=== PATIENT | male | born 1975 | race Caucasian/White ===

== ENCOUNTER 2018-01-15 20:26 | Inpatient (IN) | payer MEDICAID, OTHER ==
[2018-01-15] MEDS ORDERED: ACETAMINOPHEN 650MG/20.3ML CUP NGT (23:40)
[2018-01-16 00:07] LABS: ADD MAN DIFF? NO; BASOPHILS % 0.1 % (0.0-2.0); HEMATOCRIT 44.3 % (42.0-52.0); HEMOGLOBIN 15.5 g/dl (14.0-18.0); LYMPHOCYTES # 1.1 10^3/ul (0.8-2.9); LYMPHOCYTES % 10.6 % (15.0-51.0); MEAN CORPUSCULAR HEMOGLOBIN 30.8 pg (29.0-33.0); MEAN CORPUSCULAR VOLUME 87.9 fl (82.0-101.0); MONOCYTE # 0.5 10^3/ul (0.3-0.9); MONOCYTES % 4.7 % (0.0-11.0); NEUTROPHILS % 84.2 % (39.0-77.0); PLATELET COUNT 266 10^3/UL (140-415); RED BLOOD COUNT 5.04 10^6/ul (4.70-6.10); RED CELL DISTRIBUTION WIDTH 11.9 % (11.5-14.5)
[2018-01-16 00:07] LABS: WHITE BLOOD COUNT 10.7 10^3/ul (4.8-10.8)
[2018-01-16] MEDS: SODIUM CHLORIDE 0.9% 1L BAG IV* (00:21)
[2018-01-16] MEDS: morphine 4 MG/ML VIAL IV (00:22)
[2018-01-16] MEDS: ONDANSETRON 4 MG INJ IV (00:22)
[2018-01-16] MEDS: ACETAMINOPHEN 325 MG TAB PO ×3 (00:27→20:59)
[2018-01-16 00:28] LABS: LACTIC ACID 1.5 mmol/L (0.5-2.0)
[2018-01-16 00:29] LABS: ALANINE AMINOTRANSFERASE 26 IU/L (13-69); ALBUMIN 4.2 g/dl (3.3-4.9); ALBUMIN/GLOBULIN RATIO 1.07; ALKALINE PHOSPHATASE 107 IU/L (42-121); ANION GAP 14 (8-16); ASPARTATE AMINO TRANSFERASE 25 IU/L (15-46); BILIRUBIN,INDIRECT 0.4 mg/dl (0-1.1); BILIRUBIN,TOTAL 0.4 mg/dl (0.2-1.3); BLOOD UREA NITROGEN 11 mg/dl (7-20); CALCIUM 9.1 mg/dl (8.4-10.2); CARBON DIOXIDE 29 mmol/L (21-31); CHLORIDE 94 mmol/L (97-110); CREATININE 0.68 mg/dl (0.61-1.24); GLUCOSE 230 mg/dl (70-220); INR 0.98; POTASSIUM 4.4 mmol/L (3.5-5.1); PROTIME 13.1 Sec (11.9-14.9); SODIUM 133 mmol/L (135-144); TOTAL PROTEIN 8.1 g/dl (6.1-8.1)
[2018-01-16 00:30] LABS: PARTIAL THROMBOPLASTIN TIME 28.1 Sec (25.0-35.0)
[2018-01-16 00:40] LABS: TROPONIN-I < 0.010 ng/ml (0.000-0.120)
[2018-01-16 01:25] LABS: ADD UMIC YES; UR ASCORBIC ACID NEGATIVE (NEGATIVE); UR BILIRUBIN (Dip) NEGATIVE (NEGATIVE); UR BLOOD (Dip) NEGATIVE (NEGATIVE); UR CLARITY CLEAR (CLEAR); UR COLOR YELLOW (YELLOW); UR GLUCOSE (Dip) 3+ mg/dL (NEGATIVE); UR KETONES (Dip) 2+ mg/dL (NEGATIVE); UR LEUKOCYTE ESTERASE (Dip) NEGATIVE Leu/ul (NEGATIVE); UR MUCUS FEW /HPF (NONE SEEN); UR NITRITE (Dip) NEGATIVE (NEGATIVE); UR RBC 4 /HPF (0-5); UR SPECIFIC GRAVITY (Dip) 1.017 (1.003-1.030); UR TOTAL PROTEIN (Dip) 2+ mg/dl (NEGATIVE); UR UROBILINOGEN (Dip) 1+ mg/dL (NEGATIVE); UR WBC 1 /HPF (0-5)
[2018-01-16] MEDS: DEXAMETHASONE 4 MG/ML 5 ML INJ IV ×3 (02:23→23:36)
[2018-01-16] MEDS: CEFTRIAXONE 2 GM/50 ML (PMX) 50 ML IVPB ×2 (02:24→15:12)
[2018-01-16] MEDS: VANCOMYCIN 1 GM (PMX) 250 ML IVPB (02:47)
[2018-01-16 03:04] LABS: LACTIC ACID 1.3 mmol/L (0.5-2.0)
[2018-01-16 06:23] LABS: LACTIC ACID 1.3 mmol/L (0.5-2.0)
[2018-01-16] MEDS: SOD CHLORIDE 0.9% 1,000 ML IV (08:17)
[2018-01-16] MEDS ORDERED: DOCUSATE SODIUM 100 MG CAP PO (08:30)
[2018-01-16] MEDS ORDERED: BISACODYL (EC) 5 MG TAB PO (08:30)
[2018-01-16] MEDS ORDERED: ONDANSETRON 4 MG INJ IV (08:30)
[2018-01-16] MEDS ORDERED: NACL 0.9% 3 ML SYG IV (08:30)
[2018-01-16] MEDS ORDERED: VANCOMYCIN IV PER PHARMACY XX (09:00)
[2018-01-16] MEDS ORDERED: INSULIN ASPART [NOVOLOG] 3 ML PEN SC ×2 (09:00→17:05)
[2018-01-16 10:40] LABS: HAAIG REFLEX REFLEX FILED
[2018-01-16] MEDS ORDERED: PIPER-TAZO 3.375 GM IV (PMX) 100 ML IVPB (11:00)
[2018-01-16] MEDS ORDERED: DEXTROSE 50% 50 ML SYRINGE IV ×2 (11:00)
[2018-01-16] MEDS ORDERED: GLUCAGON 1 MG INJ IM (11:00)
[2018-01-16] MEDS ORDERED: GLUCOSE GEL 15 GRAM TUBE PO ×2 (11:00)
[2018-01-16] MEDS ORDERED: GLUCOSE GEL 15 GRAM TUBE BUCCAL (11:00)
[2018-01-16 11:32] LABS: HEPATITIS B SURFACE ANTIGEN NEGATIVE (NEGATIVE)
[2018-01-16] MEDS: VANCOMYCIN 750 MG in SOD CHLORIDE 0.9% 150 ML IVPB (11:43)
[2018-01-16 11:49] LABS: CSF MN% 43.6 %; CSF PMN% 56.4 %; CSF RBC 0 /uL (0-0)
[2018-01-16 11:50] LABS: HEPATITIS B CORE ANTIBODY NEGATIVE (NEGATIVE); HEPATITIS C VIRAL ANTIBODY NEGATIVE (NEGATIVE)
[2018-01-16 12:01] LABS: GLUCOSE,CSF 139 mg/dl (50-80)
[2018-01-16 12:01] LABS: ERYTHROCYTE SEDIMENTATION RATE 31 mm/Hr (0-15)
[2018-01-16 12:47] LABS: C-REACTIVE PROTEIN 1.2 mg/dl (0.0-0.9)
[2018-01-16 12:56] LABS: CSF COLOR COLORLESS
[2018-01-16 12:56] LABS: CSF CLARITY HAZY; CSF WBC 71 /cmm (0-10); CSF#TUBES REC'D 4
[2018-01-16 12:57] LABS: CSF#TUBE COUNT TUBE#4
[2018-01-16 13:09] LABS: TOTAL PROTEIN,CSF 81 mg/dl (12-60)
[2018-01-16] MEDS ORDERED: CEFTRIAXONE 2 GM/50 ML (PMX) 50 ML IVPB (13:30)
[2018-01-16] MEDS ORDERED: ACYCLOVIR 500 MG in DEXTROSE 5% 100 ML IVPB (14:00)
[2018-01-16 16:19] LABS: HEMOGLOBIN A1C 11.9 % (0-5.9)
[2018-01-16 16:38] LABS: HIV 1&2 ANTIBODY NEGATIVE (NEGATIVE)
[2018-01-16] MEDS: ACYCLOVIR 600 MG in DEXTROSE 5% 100 ML IVPB ×2 (17:10→21:01)
[2018-01-16] MEDS: Insulin NOVOLOG SS MILD Algorithm (SS with meals and bedtime) SC ×2 (17:23→21:21)
[2018-01-16] MEDS: INSULIN GLARGINE [LANTus] (100 UNITS/ML) SYG SC (21:22)
[2018-01-16 22:59] LABS: MONOTEST Negative (NEG)
[2018-01-16] MEDS: VANCOMYCIN 1.25 GM in SOD CHLORIDE 0.9% 250 ML IVPB (23:29)
[2018-01-17] MEDS: ACCUCHECK AT 2AM (Patients on SS coverage) XX (02:00)
[2018-01-17] MEDS ORDERED: ACCU-CHEK XX ×2 (02:00)
[2018-01-17] MEDS: CEFTRIAXONE 2 GM/50 ML (PMX) 50 ML IVPB ×2 (03:00→13:17)
[2018-01-17] MEDS: ACYCLOVIR 600 MG in DEXTROSE 5% 100 ML IVPB ×2 (06:25→14:35)
[2018-01-17] MEDS: ACETAMINOPHEN 325 MG TAB PO (06:31)
[2018-01-17] MEDS: Insulin NOVOLOG SS MILD Algorithm (SS with meals and bedtime) SC ×4 (06:41→21:34)
[2018-01-17] MEDS: DEXAMETHASONE 4 MG/ML 5 ML INJ IV ×3 (06:42→17:30)
[2018-01-17 07:29] LABS: ADD MAN DIFF? NO
[2018-01-17 07:36] LABS: WHITE BLOOD COUNT 15.8 10^3/ul (4.8-10.8)
[2018-01-17 07:36] LABS: BASOPHILS % 0.1 % (0.0-2.0); HEMATOCRIT 38.3 % (42.0-52.0); HEMOGLOBIN 13.6 g/dl (14.0-18.0); LYMPHOCYTES % 6.3 % (15.0-51.0); MEAN CORPUSCULAR HEMOGLOBIN 30.3 pg (29.0-33.0); MEAN CORPUSCULAR HGB CONC 35.5 g/dl (32.0-37.0); MEAN CORPUSCULAR VOLUME 85.3 fl (82.0-101.0); MEAN PLATELET VOLUME 10.4 fl (7.4-10.4); MONOCYTE # 0.6 10^3/ul (0.3-0.9); MONOCYTES % 3.9 % (0.0-11.0); NEUTROPHIL # 14.1 10^3/ul (1.6-7.5); NEUTROPHILS % 89.3 % (39.0-77.0); PLATELET COUNT 280 10^3/UL (140-415); RED BLOOD COUNT 4.49 10^6/ul (4.70-6.10); RED CELL DISTRIBUTION WIDTH 11.9 % (11.5-14.5)
[2018-01-17 07:51] LABS: PHOSPHORUS 3.8 mg/dl (2.5-4.9)
[2018-01-17 07:52] LABS: HEMOGLOBIN A1C 11.6 % (0-5.9)
[2018-01-17 08:25] LABS: ALANINE AMINOTRANSFERASE 20 IU/L (13-69); ALBUMIN 3.5 g/dl (3.3-4.9); ALBUMIN/GLOBULIN RATIO 1.02; ALKALINE PHOSPHATASE 83 IU/L (42-121); ANION GAP 14 (8-16); ASPARTATE AMINO TRANSFERASE 14 IU/L (15-46); BILIRUBIN,INDIRECT 0.2 mg/dl (0-1.1); BILIRUBIN,TOTAL 0.2 mg/dl (0.2-1.3); BLOOD UREA NITROGEN 17 mg/dl (7-20); CALCIUM 8.8 mg/dl (8.4-10.2); CARBON DIOXIDE 25 mmol/L (21-31); CHLORIDE 96 mmol/L (97-110); GLUCOSE 281 mg/dl (70-220); MAGNESIUM 1.9 mg/dl (1.7-2.5); SODIUM 131 mmol/L (135-144); TOTAL PROTEIN 6.9 g/dl (6.1-8.1)
[2018-01-17 08:53] LABS: THYROID STIMULATING HORMONE 0.268 MIU/L (0.465-4.680)
[2018-01-17] MEDS: VANCOMYCIN 1.25 GM in SOD CHLORIDE 0.9% 250 ML IVPB (10:19)
[2018-01-17 13:37] LABS: ANA SCREEN NEGATIVE (NEGATIVE)
[2018-01-17 18:26] LABS: FREE T4 (FREE THYROXINE) 0.89 ng/dl (0.64-1.79)
[2018-01-17 20:22] LABS: EBV VIRAL CAPSID AG AB (IGM) <36.00 U/mL
[2018-01-17] MEDS: LIDOCAINE 1% (MPF) 5 ML VIAL (21:11)
[2018-01-17] MEDS: INSULIN GLARGINE [LANTus] (100 UNITS/ML) SYG SC (21:33)
[2018-01-18] MEDS: ACCUCHECK AT 2AM (Patients on SS coverage) XX (02:47)
[2018-01-18 04:13] LABS: CREATININE,URINE RANDOM 51.43 mg/dl (20-370)
[2018-01-18 06:45] LABS: ADD MAN DIFF? NO
[2018-01-18 06:52] LABS: WHITE BLOOD COUNT 16.7 10^3/ul (4.8-10.8)
[2018-01-18 06:52] LABS: BASOPHILS % 0.1 % (0.0-2.0); HEMATOCRIT 36.7 % (42.0-52.0); HEMOGLOBIN 13.2 g/dl (14.0-18.0); LYMPHOCYTES # 1.4 10^3/ul (0.8-2.9); LYMPHOCYTES % 8.5 % (15.0-51.0); MEAN CORPUSCULAR HEMOGLOBIN 30.8 pg (29.0-33.0); MEAN CORPUSCULAR VOLUME 85.7 fl (82.0-101.0); MEAN PLATELET VOLUME 10.7 fl (7.4-10.4); MONOCYTE # 1.3 10^3/ul (0.3-0.9); MONOCYTES % 7.8 % (0.0-11.0); NEUTROPHIL # 13.9 10^3/ul (1.6-7.5); NEUTROPHILS % 83.2 % (39.0-77.0); PLATELET COUNT 295 10^3/UL (140-415); RED BLOOD COUNT 4.28 10^6/ul (4.70-6.10); RED CELL DISTRIBUTION WIDTH 11.6 % (11.5-14.5)
[2018-01-18 07:14] LABS: ANION GAP 13 (8-16); BLOOD UREA NITROGEN 20 mg/dl (7-20); CALCIUM 8.5 mg/dl (8.4-10.2); CARBON DIOXIDE 24 mmol/L (21-31); CHLORIDE 95 mmol/L (97-110); CREATININE 0.57 mg/dl (0.61-1.24); GLUCOSE 237 mg/dl (70-220); MAGNESIUM 2.1 mg/dl (1.7-2.5); PHOSPHORUS 3.6 mg/dl (2.5-4.9); POTASSIUM 4.1 mmol/L (3.5-5.1); SODIUM 128 mmol/L (135-144)
[2018-01-18] MEDS: Insulin NOVOLOG SS MILD Algorithm (SS with meals and bedtime) SC ×4 (08:43→21:58)
[2018-01-18] MEDS: ACETAMINOPHEN 325 MG TAB PO (10:22)
[2018-01-18] MEDS: INSULIN GLARGINE [LANTus] (100 UNITS/ML) SYG SC (22:03)
[2018-01-19] MEDS: ACETAMINOPHEN 325 MG TAB PO (02:23)
[2018-01-19] MEDS: ACCUCHECK AT 2AM (Patients on SS coverage) XX (02:27)
[2018-01-19] MEDS: LISINOPRIL 5 MG TAB PO (08:36)
[2018-01-19] MEDS: Insulin NOVOLOG SS MILD Algorithm (SS with meals and bedtime) SC ×3 (08:37→17:51)
[2018-01-19 23:21] LABS: VDRL, CSF NON-REACTIVE
[2018-01-20 13:40] LABS: HERPES SIMPLEX 1 DNA NOT DETECTED; HERPES SIMPLEX 2 DNA NOT DETECTED; HERPES SIMPLEX PCR SOURCE CEREBROSPINAL FLUID
[2018-01-23 11:52] LABS: WEST NILE VIRUS ANTIBODY (IGG) <1.30 index; WEST NILE VIRUS ANTIBODY (IGM) 3.78 index
== END 2018-01-19 18:59 | disposition home or self-care (01) | DRG 75 ==
LOC: PP2 01-19 01:53 → E/R 20:26 → MS3 01-16 02:06 → TEL 01-16 15:07
PROC: 009U3ZX Drainage of Spinal Canal, Percutaneous Approach, Diagnostic (ICD-10-PCS; principal; 2018-01-16)
PROC: B01BYZZ Fluoroscopy of Spinal Cord using Other Contrast (ICD-10-PCS; 2018-01-16)
DX: A87.9 Viral meningitis, unspecified (principal); E87.1 Hypo-osmolality and hyponatremia; R50.9 Fever, unspecified; R51 Headache; E11.65 Type 2 diabetes mellitus with hyperglycemia; E05.90 Thyrotoxicosis, unspecified without thyrotoxic crisis or storm; E11.21 Type 2 diabetes mellitus with diabetic nephropathy; F17.210 Nicotine dependence, cigarettes, uncomplicated; Z79.4 Long term (current) use of insulin; Z79.84 Long term (current) use of oral hypoglycemic drugs
CPT/HCPCS: 36415; 70553; 71045; 80048; 80053; 81001; 81003; 82945; 82962; 83036; 83605; 83615; 83735; 84100; 84155; 84157; 84439; 84443; 84484; 85025; 85610; 85651; 85730; 86038; 86140; 86308; 86592; 86664; 86703; 86704; 86709; 86788; 86789; 86803; 87040; 87070; 87077; 87086; 87102; 87275; 87276; 87279; 87280; 87340; 87400; 87529; 88104; 89051; 93005; 96374; 96375; 99285-25